=== PATIENT | female | born 1965 | race Caucasian/White ===

== ENCOUNTER 2023-05-23 08:53 | Outpatient (CLI) | payer MEDICARE, SELFPAY ==
--- NOTE | ~2023-05-23 | MM_ITS ---
EXAMINATION: MM screening [facility] BI w seamus HISTORY: Screening mammogram TECHNIQUE: Craniocaudal and mediolateral oblique 3-D tomosynthesis images were obtained and synthetic 2-D images were generated. CAD analysis was submitted and interpreted. COMPARISON: No prior mammogram is available for comparison at this institution. BREAST PARENCHYMAL COMPOSITION: There are scattered areas of fibroglandular density. FINDINGS: There is a circumscribed approximately 5.8 by perhaps 10 mm opacity in the very posterior u pper inner quadrant of the left breast, partially excluded from both images due to its extreme pencil sorter ior position. Diagnostic left mammogram and left breast ultrasound examination are recommended. No suspicious mass, architectural distortion, malignant calcification, skin thickening or retraction of either breast is noted otherwise. There is no evidence of suspicious mass, calcification, or archi tectural distortion to suggest malignancy in either breast. There has been no suspicious interval ly nge. IMPRESSION: 1. Very posterior roughly 1 cm circumscribed mass in the upper inner quadrant of the left breast 2. Diagnostic left mammogram and left breast ultrasound examination are recommended.. Comparison with prior mammograms is recommended as well. BI-RADS Category 0: Incomplete: Needs additional imaging evaluation. Reviewed, dictated and finalized at location A. ROUNDING MACHINE OPERATOR IMPRESSION: 1. Very posterior roughly 1 cm circumscribed mass in the upper inner quadrant o f the left breast 2. Diagnostic left mammogram and left breast ultrasound examination are recomme nded.. Comparison with prior mammograms is recommended as well. BI-RADS Category 0: Incomplete: Needs additional imaging evaluation.
== END 2023-05-23 08:54 | disposition home or self-care (01) ==
DX: Z12.31 Encounter for screening mammogram for malignant neoplasm of breast (principal); R92.8 Other abnormal and inconclusive findings on diagnostic imaging of breast
CPT/HCPCS: 77063; 77067

== ENCOUNTER 2023-06-08 08:45 | Outpatient (CLI) | payer MEDICARE, SELFPAY ==
--- NOTE | ~2023-06-08 | MMUS_ITS ---
EXAMINATION: MM diagnostic [facility] LT w seamus, US breast LT limited HISTORY: Left breast mass on screening mammogram TECHNIQUE: Additional 3-D tomosynthesis images of the left breast were performed and synthetic 2-D im ages were generated. CAD analysis was submitted and interpreted. High resolution limited left breast ultrasound was performed. COMPARISON: 05/23/2023 FINDINGS: MAMMOGRAPHIC FINDINGS: There is a partially imaged low-density, circumscribed mass in the far posterior third of the inner r ight breast at the 10:00 location, 14 cm from the nipple. No suspicious architectural distortion or c alcification are identified. ULTRASOUND: There is an 8 mm x 5 mm cyst at the 10:00 location, 9 cm from the nipple in the left breast correspon ding to the mammographic finding in question. A 4 mm round cyst is also noted at the 12:00 location, 6 cm from the nipple. IMPRESSION: 1. No mammographic or sonographic evidence of malignancy. 2. Recommend routine screening mammography in one year. BI-RADS Category 2: Benign finding(s). Reviewed, dictated and finalized at location A. DE SALES ACCOUNT REPRESENTATIVE IMPRESSION: 1. No mammographic or sonographic evidence of malignancy. 2. Recommend routine screening mammography in one year. BI-RADS Category 2: Benign finding(s).
== END 2023-06-08 08:46 | disposition home or self-care (01) ==
DX: R92.8 Other abnormal and inconclusive findings on diagnostic imaging of breast (principal)
CPT/HCPCS: 76642; 77061; 77065; G0279

== ENCOUNTER 2025-05-17 13:20 | Emergency (ER) | payer MEDICARE, SELFPAY ==
--- NOTE | ~2025-05-17 | CT_ITS ---
EXAMINATION: CT cervical spine wo con COMPARISON: None HISTORY: Fall, anterior Rt. side head injury/ headache/ contusion TECHNIQUE: Axial images were obtained through the spine without IV contrast. Coronal, sagittal reconstruction images were obtained from the axial views. CT scan performed using dose optimization techniques including the following automated exposure control; adjustment of mA and/or kV; use of iterative reconstruction technique. Automatic exposure control was used to reduce radiation dose. Permanent radiation dose record is archived to PACS. FINDINGS: Grade 1 anterolisthesis of C2 on C3 and C3 on C4 and C4 on C5, no fracture identified. Minimal loss of disc height at C5-6 and C6-7 with mild canal stenosis. Soft tissues unremarkable. Impression: No acute abnormality. Reviewed, dictated and finalized at location P. LE R12 DEVELOPER Impression: No acute abnormality.
--- NOTE | ~2025-05-17 | XR_ITS ---
EXAMINATION: XR ankle RT min 3V, 05/17/2025 14:00 TUBE LASER OPERATOR HISTORY: Fall, Rt. foot/ankle pain COMPARISON: No comparisons available. Findings: No acute fracture or malalignment. No significant degenerative changes. Soft tissues unremarkable. Impression: No acute fracture or malalignment. Reviewed, dictated and finalized at location P. LASER OPERATOR Impression: No acute fracture or malalignment.
--- NOTE | ~2025-05-17 | XR_ITS ---
EXAMINATION: XR hip RT 2V w AP pelvis, 05/17/2025 14:00 EXECUTIVE ADVISOR HISTORY: Fall, Rt. hip pain COMPARISON: No comparisons available. Findings: No acute fracture or malalignment. No significant degenerative changes. Soft tissues unremarkable. Impression: No acute fracture or malalignment. Reviewed, dictated and finalized at location P. UTIVE ADVISOR Impression: No acute fracture or malalignment.
--- NOTE | ~2025-05-17 | XR_ITS ---
EXAMINATION: XR foot RT min 3V, 05/17/2025 14:00 THERMAL SPRAY OPERATOR HISTORY: Fall, Rt. foot/ankle pain COMPARISON: No comparisons available. Findings: No acute fracture or malalignment. No significant degenerative changes. Soft tissues unremarkable. Impression: No acute fracture or malalignment. Reviewed, dictated and finalized at location P. MAL SPRAY OPERATOR Impression: No acute fracture or malalignment.
--- NOTE | ~2025-05-17 | CT_ITS ---
EXAMINATION: CT brain wo cara, 05/17/2025 14:00 PHOTORESIST CONTACT PRINTER HISTORY: Fall, anterior Rt. side head injury/ headache/ contusion COMPARISON: No comparisons available. Technique: Axial images obtained of the brain without contrast. One or more of the following dose reduction techniques were used: automated exposure control, adjustment of the mA and/or kV according to patient size, use of iterative reconstruction technique. Findings: No acute infarct or parenchymal hemorrhage. No abnormal mass or mass effect. No midline shift. No extra-axial fluid collections. No hydrocephalus. Mastoid air cells unremarkable. Sinuses and orbits unremarkable. No acute fracture. No significant facial or scalp soft tissue swelling evident. No radiopaque foreign body is seen. Impression: 1.No acute intracranial abnormality. Reviewed, dictated and finalized at location P. ORESIST CONTACT PRINTER Impression: 1.No acute intracranial abnormality.
--- NOTE | ~2025-05-17 | XR_ITS ---
EXAMINATION: XR hand LT min 3V, 05/17/2025 14:00 TIMBER MANAGEMENT PROFESSOR HISTORY: Fall, Lt. hand pain COMPARISON: No comparisons available. Findings: No acute fracture or malalignment. No significant degenerative changes. Soft tissues unremarkable. Impression: No acute fracture or malalignment. Reviewed, dictated and finalized at location P. ER MANAGEMENT PROFESSOR Impression: No acute fracture or malalignment.
[2025-05-17 13:22] VITALS: BP 129/85; PULSE 70; RESP 20; TEMP 36.2; O2SAT 96
--- NOTE | 2025-05-17 13:27 | ED.HEATRA ---
HPI - Head Injury General Chief complaint: Fall Stated complaint: fall Time Seen by Provider: 05/17/25 13:26 Source: patient and family Mode of arrival: ambulatory Limitations: no limitations History of Present Illness HPI Narrative: Patient is a 59-year-old female with a stepped down 1 step and lost her footing and hit her head frontal area onto a glass window and then the concrete. She also sustained injuries to her right hip and her right ankle and her right foot. She had loss of consciousness for a few seconds and woke up on the floor. MD Complaint: head injury, head pain and fall Onset (ago): hour(s) (One) Mechanism of Injury: fall Place: home Loss of Consciousness: yes, second(s) and unwitnessed Location of injury: frontal Severity: moderate Severity scale (1-10): 4 Quality: sharp Radiation: none Other Injuries: lower extremity (Right hip and right ankle and right foot) Context: other (Patient lost her footing due to her right ankle and fell to hit her forehead and injured her right hip and right ankle and right foot; associated syncope) Associated symptoms: syncope Related Data Allergies Allergy/AdvReac Type Severity Reaction Status Date / Time cephalexin Allergy Intermediate Hives / Verified 03/15/18 12:46 Red Face mushroom Allergy Unknown HIVES Verified 03/15/18 12:46 Sulfa (Sulfonamide Allergy Unknown HIVES, Verified 03/15/18 12:46 Antibiotics) THROAT SWELLING Honey Bee Allergy Unknown LOSS OF Uncoded 03/15/18 12:46 CONSCIOUSNESS Review of Systems Review of Systems: All systems reviewed & are unremarkable except as noted in HPI and below Constitutional: Constitutional: Reports no additional constitutional complaints Eyes: Eyes: Reports no additional eye complaints ENT: Reports system reviewed and no additional complaints, except as documented Cardiovascular: Cardiovascular: Reports no additional cardiovascular complaints Respiratory: Respiratory: Reports no additional respiratory complaints Gastrointestinal: Gastrointestinal: Reports no additional gastrointestinal complaints Genitourinary: Genitourinary: Reports no additional female genitourinary complaints Musculoskeletal: Musculoskeletal: Reports no additional musculoskeletal complaints Integumentary/Breasts: Skin/Breast: Reports system reviewed and no additional complaints, except as docu Neurologic: Reports system reviewed and no additional complaints, except as documented Psychiatric: Psychiatric: Reports no additional psychiatric complaints Endocrine: Endocrine: Reports no additional endocrine complaints Hematologic/Lymphatic: Hematologic/Lymphatic: Reports no additional hematologic/lymphatic complaints Allergic/Immunologic: Allergic/Immunologic: Reports no additional allergic/immunologic complaints Exam Const: General: healthy appearing Nutritional Appearance: well nourished Orientation/consciousness: patient oriented x3 HENMT: Head: normal to inspection Ears: external ears normal Face/Nose/Sinus: Normal external nose present Eyes: Conjunctivae: conjunctivae normal Pupils: Equal, round and reactive pupils present EOM: EOMs intact bilaterally Neck: Neck: normal visual inspection Chest: Chest palpation & inspection: normal inspection of the chest Resp: Effort & Inspection: normal respiratory effort and not labored Auscultation: clear to auscultation bilaterally and no crackles Cardio: Rate: regular rate Rhythm: regular rhythm Heart sounds: no murmurs GI: Inspection: non-distended GI Palp: Yes Soft to palpation and No Tenderness to palpation present (GI) Auscultation: normal bowel sounds : General: Yes bladder normal to palpation Back/Spine/Pelvis: Back: no CVA tenderness Skin: General skin exam: normal color Rashes: no rashes Wounds: wound noted Other: Right frontal forehead has a medium sized hematoma the size of a golf ball with topical abrasion; tetanus shot up-to-date in the past 10 years Neuro: General: patient oriented x3, moves all extremities and no meningeal signs Cranial nerves: Yes CN's II-XII intact bilaterally and Yes Nystagmus not present Speech: normal speech Gait exam (Neuro): gait abnormal (Abnormal gait due to right ankle injury) Other: Fast exam negative, NIH is 0, GCS is 15 Extrem: General: normal to inspection, no clubbing, cyanosis or edema and no pedal edema Other: Tender right hip posteriorly, tender right ankle and tender right foot; no major skin changes or swelling seen in all of these areas Psych: Mental Status: mental status grossly normal Affect: normal affect Attitude: cooperative Course Vital Signs Vital signs: Vital Signs Temperature 36.2 C L 05/17/25 13:22 Pulse Rate 70 05/17/25 13:22 Respiratory Rate 20 05/17/25 13:22 Blood Pressure 129/85 05/17/25 13:22 Pulse Oximetry 96 05/17/25 13:22 Oxygen Delivery Room Air 05/17/25 13:22 Temperature 36.2 C L 05/17/25 13:22 Pulse Rate 70 05/17/25 13:22 Respiratory Rate 20 05/17/25 13:22 Blood Pressure 129/85 05/17/25 13:22 Pulse Oximetry 96 05/17/25 13:22 Oxygen Delivery Room Air 05/17/25 13:22 MDM - Head Injury MDM Narrative Medical decision making narrative: Patient is a 59-year-old female with a head injury after a fall with associated syncope and also right hip and right ankle and right foot injuries. We will get x-rays and CT scan head and neck. Imaging Data Attestation: I personally reviewed and interpreted this imaging study as follows: Radiologist's impression: X-ray right hip and pelvis are negative for acute process X-ray left hand is negative for acute process X-ray right ankle is negative for acute process Scan of the head and neck were both negative for acute process X-ray right foot is negative for acute process Discharge Plan Discharge Clinical Impression: Syncope, Fall, Closed head injury, Multiple contusions Patient Disposition: Home Condition: Stable Instructions: Syncope (ED), Head Injury (ED) Additional Instructions: Please follow-up with primary doctor in the next week. You will need to be woken up around 2 or 3:00 a.m. tonight to check for normal mental status. Please come back to the emergency room with any further or worsening symptoms. Patient Language: Citizen Of [place] Follow-up/Referrals: Ty,Katt Chiu MD [Primary Care Provider, Unknown] Time of Disposition: 14:31
--- NOTE | 2025-05-17 13:58 | PC.NURSE ---
pt complaint of left hand pain while in xray department. orpder placed per dr shepherd
--- OUTSIDE RECORDS SUMMARY | 2025-05-17 14:33 | XMS_ITS | Encounter Summary ---
Author Organization [facility] Address [facility] [place] [address] Care Team Providers Care Goat Herder Name Role Phone Kurt Lott MD Primary Care Provider Hermann Renae MD Unavailable [phone] Magan Felder MD Primary Care Provider Joao Turner MD Primary Care Provider [phone] Encounter Details Date Type Department Care Team (Late st Contact Info) Description 10/02/2018 Abstract [facility] [address] [place] [address] Abstract, Doc [facility] Social History Tobacco Use Types Packs/Day Years Used Date Smoking Tobacco: Former Cigarettes Comments Unknown Sex and Gender Information Value Date Recorded Sex Assigned at Female 02/13/2019 4:23 PM CDT Legal Sex Female 8:42 PM CDT Gender Identity Female 02/13/2019 4:23 PM CDT Sexual Orientation Not on file documented as of this encounter Plan of Treatment Not on file documented as of this encounter Visit Diagnoses Not on filedocumented in this encounter Additional Health Concerns Infection Onset Date Last Indicated Resolved Time COVID-19 Rule Out 02/22/2021 02/22/2021 02/22/2021 2:01 AM CDT documented as of this encounter Care Teams Goat Herder Relationship Specialty Start Date End Date Kurt Lott MD PCP - General FAMILY PRACTICE 10/02/18 01/05/19 Magan Felder MD [address] [place] [phone] PCP - General FAMILY PRACTICE 01/06/19 04/03/20 Joao Turner MD [address] [place] [address] PCP - General FAMILY PRACTICE 04/04/20 Hermann Renae MD [address] [place] [address] [place] [employer] Police Officer CARDIOVASCULAR DISEASE 10/02/18 documented as of this encounter
--- OUTSIDE RECORDS SUMMARY | 2025-05-17 14:33 | XMS_ITS | Clinical Summary ---
Author Organization [facility] Building B Address [address] [place] [address] Care Team Providers Care Funeral Pre Need Consultant Name Role Phone Joao Truner MD Primary Care Provider [phone] Allergies Active Allergy Reactions Criticality Noted Date Comments Azithromycin Rash Medium 10/02/2018 Cephalexin Hives,Unknown Medium 04/12/2018 Sulfa (Sulfonamide Antibiotics) Anaphylaxis High 06/[address] (CYMBALTA) 60 mg capsule Take 60 mg by mouth 2 (two) times a day Active traMADol (ULTRAM) 50 mg tablet 0 9 Active prednisoLONE acetate (PRED FORTE) 1 % ophthalmic suspension Administer 1 drop into both eyes as directed (per patient uses every 3 days) Active atorvastatin (LIPITOR) 10 mg tablet Take 10 mg by mouth daily 2 Active cyclobenzaprine (FLEXERIL) 10 mg tablet Take 10 mg by mouth 3 (three) times a day as needed Active gabapentin (NEURONTIN) 600 mg tablet Take 600 mg by mouth 4 (four) times a day 1200 / 600 / 600 / 1200 2 Active lisinopril-hydr oCHLOROthiazide (ZESTORETIC) 10-12.5 mg per tablet Take 1 tablet by mouth daily 2 Active metoprolol (LOPRESSOR) 100 mg tablet Take 100 mg by mouth 2 (two) times a day 2 Active rOPINIRole (REQUIP) 0.5 mg tablet Take 0.5 mg by mouth nightly 2 Active Active Problems Problem Noted Date Diagnosed Date Chronic migraine with aura 09/21/2021 Surgical History Surgery Date Site/Laterality Comments TUBAL LIGATION HYSTERECTOMY BREAST LUMPECTOMY Medical History Medical History Date Comments Hypertension Fuchs' corneal dystrophy History of corneal transplant OU Splenic lesion Meningioma, cerebral (HCC) Depression Glaucoma Age-related macular degeneration Unexplained vision loss, OU Poss ibly nonorganic Left carpal tunnel syndrome Headaches Family History Medical History Relation Name Comments Stroke Father Parkinsonism Maternal Grandmother Relation Name Status Comments Father Maternal Grandmother Social History Tobacco Use Types Packs/Day Years Used Date Smoking Tobacco: Former Cigarettes Smokeless Tobacco: Never Alcohol Use Standard Drinks/Week Comments Yes 0 (1 standard drink = 0.6 oz pur e alcohol) AUDIT-C Answer Date Recorded Frequency of Alcohol Consumption Monthly or less 11/26/2018 Average Number of Drinks Not on file 019 Frequency of Binge Drinking Not on file 10/31 Personal Safety Answer Date Recorded Getting School Help Needed Not on file 07/06 Comments Unknown Sex and Gender Information Value Date Recorded Sex Assigned at Not on file Legal Sex Female 6:08 AM BINDER CASER Gender Identity Not on file Sexual Orientation Not on file Last Filed Vital Signs Vital Sign Reading Time Taken Comments Blood Pressure 154/84 11/26/2018 11:19 AM CDT Pulse 70 11/26/2018 11:19 AM CDT Temperature - - Respiratory Rate 16 11/26/2018 11:19 AM CDT Oxygen Saturation - - Inhaled Oxygen Concentration - - Weight 78 kg (172 lb) 11/26/2018 11:19 AM CDT Height 162.6 cm (5' 4) 11/26/2018 11:19 AM CDT Body Mass Index 29.52 11/26/2018 11:19 AM CDT Plan of Treatment Not on file Insurance [place] [facility] Care Teams Funeral Pre Need Consultant Relationship Specialty Start Date End Date Joao Turner MD [address] [place] [address] PCP - General Family Medicine 09/21/21
--- OUTSIDE RECORDS SUMMARY | 2025-05-17 14:34 | XMS_ITS | Encounter Summary ---
Author Organization [facility] Address [facility] [place] [address] Care Team Providers Care Hand Method Lasting Machine Operator Name Role Phone Kurt Lott MD Primary Care Provider Hermann Renae MD Unavailable [phone] Magan Felder MD Primary Care Provider Joao Turner MD Primary Care Provider [phone] Encounter Details Date Type Department Care Team (Late st Contact Info) Description 12/07/2018 Abstract [facility] [address] [place] [address] , Generic Conversion, Social History Tobacco Use Types Packs/Day Years Used Date Smoking Tobacco: Former Cigarettes Smokeless Tobacco: Never Comments Unknown Sex and Gender Information Value [...] documented as of this encounter Care Teams Hand Method Lasting Machine Operator Relationship Specialty Start Date End Date Kurt Lott MD PCP - General FAMILY PRACTICE 10/02/18 01/05/19 Magan Felder MD [address] [place] [phone] PCP - General FAMILY PRACTICE 01/06/19 04/03/20 Joao Turner MD [address] [place] [address] PCP - General FAMILY PRACTICE 04/04/20 Hermann Renae MD [address] [place] [address] [place] Desktop Publishing Specialist CARDIOVASCULAR DISEASE 10/02/18 documented as of this encounter
--- OUTSIDE RECORDS SUMMARY | 2025-05-17 14:34 | XMS_ITS | Encounter Summary ---
Author Organization [facility] Address Count includes the [facility] [place] [address] Care Team Providers Care Pretzel Twisting Machine Operator Name Role Phone Kurt Lott MD Primary Care Provider Hermann Renae MD Unavailable [phone] Magan Felder MD Primary Care Provider Joao Turner MD Primary Care Provider [phone] Encounter Details Date Type Department Care Team (Late st Contact Info) Description 10/15/2018 Abstract [facility] [address] [place] [address] Hermann Renae MD [address] [place] [address] Social History Tobacco Use Types Packs/Day Years [...] on file documented as of this encounter Procedures Procedure Name Priority Date/Time Associated Diagnosis Comments BASIC METABOLIC PANEL Routine 10/04/2018 THYROXINE, FREE (FT4) Routine 10/04/2018 documented in this encounter Results * THYROXINE, FREE (FT4) (10/04/2018) FREE T4 0.93 FREE T3 1.4 TSH 1.25 CORTISOL 12.9 10/04/2018 us Doc [facility] Abstract LABORATORY Final Result * BASIC METABOLIC PANEL (10/04/2018) SODIUM S/P/B 143 POTASSIUM S/P/B 4.2 CO2 26 CHLORIDE S/P/B 105 GLUCOSE 82 mg/dL CALCIUM S/P/B 9.5 BUN 23 CREATININE S/P/B 0.97 0.5 - 1.0 10/04/2018 us Doc [facility] Abstract LABORATORY Final Result documented in this encounter Visit Diagnoses Not on filedocumented in this encounter Additional Health Concerns Infection Onset Date Last Indicated Resolved Time COVID-19 Rule Out 02/22/2021 02/22/2021 02/22/2021 2:01 AM CDT documented as of this encounter Care Teams Pretzel Twisting Machine Operator Relationship Specialty Start Date End Date Kurt Lott MD PCP - General FAMILY PRACTICE 10/02/18 01/05/19 Magan Felder MD [address] [place] [phone] PCP - General FAMILY PRACTICE 01/06/19 04/03/20 Joao Turner MD [address] [place] [address] PCP - General FAMILY PRACTICE 04/04/20 Hermann Renae MD [address] [place] [phone] [place]cer CARDIOVASCULAR DISEASE 10/02/18 documented as of this encounter
[2025-05-17 15:03] VITALS: BP 102/65; PULSE 115; RESP 20; TEMP 35.8; O2SAT 94
== END 2025-05-17 15:06 | disposition home or self-care (01) ==
LOC: CHSED 14:32
PROVIDERS: Emergency Provider Emergency Medicine; PCP Family Medicine
DX: S00.83XA Contusion of other part of head, initial encounter (principal); R55 Syncope and collapse; S79.911A Unspecified injury of right hip, initial encounter; S99.921A Unspecified injury of right foot, initial encounter; S99.911A Unspecified injury of right ankle, initial encounter; W10.9XXA Fall (on) (from) unspecified stairs and steps, initial encounter
CPT/HCPCS: 29515; 70450; 72125; 73130; 73502; 73610; 73630; 99284; L4350

== ENCOUNTER 2025-06-02 10:16 | Emergency (ER) | payer MEDICARE, SELFPAY ==
[2025-06-02] VITALS (13 sets, daily range): BP systolic 111–135; BP diastolic 63–77; PULSE 84; RESP 16; TEMP 36.6; O2SAT 93–100
--- NOTE | ~2025-06-02 | CT_ITS ---
EXAMINATION: CT brain wo cara, 06/02/2025 10:35 BOWLING ALLEY OPERATOR HISTORY: fall COMPARISON: No comparisons available. Technique: Axial images obtained of the brain without contrast. One or more of the following dose reduction techniques were used: automated exposure control, adjustment of the mA and/or kV according to patient size, use of iterative reconstruction technique. Findings: No acute infarct or parenchymal hemorrhage. No abnormal mass or mass effect. No midline shift. No extra-axial fluid collections. No hydrocephalus. Mastoid air cells unremarkable. Sinuses and orbits unremarkable. No acute fracture. No significant facial or scalp soft tissue swelling evident. No radiopaque foreign body is seen. Impression: 1.No acute intracranial abnormality. Reviewed, dictated and finalized at location P. ING ALLEY OPERATOR Impression: 1.No acute intracranial abnormality.
--- NOTE | ~2025-06-02 | XR_ITS ---
EXAMINATION: XR ankle RT min 3V DATE: 06/02/2025 10:53 INDICATION: Right ankle injury TECHNIQUE: Anteroposterior, oblique, mortise, and lateral views of the right ankle were obtained. COMPARISON: None. FINDINGS: Alignment is normal. No fracture. Joint spaces are well maintained. No ankle joint effusion. The soft tissues are unremarkable. IMPRESSION: 1. Negative right ankle radiographs. Reviewed, dictated and finalized at location A. OWN MACHINE OPERATOR
--- NOTE | 2025-06-02 10:31 | PC.NURSE ---
Pt family member states that she is concerned that pt is hearing voices. When RN speaks with the pt the pt denies hearing any voices. Pt denies SI/HI at this time as well.
--- NOTE | 2025-06-02 10:37 | PC.NURSE ---
Pt to CT scanner with radiology transport.
--- NOTE | 2025-06-02 10:51 | ED_ITS ---
HPI - Fall General Chief Complaint: Fall Stated Complaint: fall; ankle pain and confusion Time Seen by Provider: 06/02/25 10:31 Source: patient Mode of arrival: wheelchair Limitations: no limitations History of Present Illness HPI Narrative: 59-year-old with a history of hypertension was brought in by family with a complains of fall which was on the 17 May and S today as well. Denies LOC no complaining of right temporal headache and right ankle pain. She states that she tripped on a toy and fell. MD complaint: fall Onset (ago): day(s) (1) Fall from: standing Fall witnessed: yes, by family Place fall occurred: home Loss of consciousness: none Prolonged down time: no Symptoms prior to fall: none Context: tripped/slipped Location of injury: head Location of injury - extremities: Right: ankle Severity: mild Quality: dull Associated symptoms (after fall): denies Related Data Home Medications ?Medication ?Instructions ?Recorded ?Confirmed ?Last Taken ?Type atorvastatin 20 mg tablet mg 06/02/25 Unknown History duloxetine 60 mg capsule,delayed mg PO 06/02/25 Unkno wn History release gabapentin 600 mg tablet mg 06/02/25 Unknown History lisinopril 10 tablet 06/02/25 Unknown His tory mg-hydrochlorothiazide 12.5 mg tablet meloxicam 15 mg tablet mg 06/02/25 Unknown History metoprolol tartrate 100 mg tablet mg 06/02/25 Unknown History ropinirole 0.5 mg tablet mg 06/02/25 Unknown History Allergies Allergy/AdvReac Type Severity Reaction Status Date / Time cephalexin Allergy Intermediate Hives / Verified 06/02/25 10:27 Red Face mushroom Allergy Unknown HIVES Verified 06/02/25 10:27 Sulfa (Sulfonamide Allergy Unknown HIVES, Verified 06/02/25 10:27 Antibiotics) THROAT SWELLING venom-honey bee Allergy Unknown Unknown Verified 06/02/25 10:27 Review of Systems Review of Systems: All systems reviewed & are unremarkable except as noted in HPI and below Constitutional: Constitutional: Reports no additional constitutional complaints Eyes: Eyes: Reports no additional eye complaints ENT: Reports system reviewed and no additional complaints, except as documented Cardiovascular: Cardiovascular: Reports no additional cardiovascular complaints Respiratory: Respiratory: Reports no additional respiratory complaints Gastrointestinal: Gastrointestinal: Reports no additional gastrointestinal complaints Musculoskeletal: Musculoskeletal: Reports as per HPI Integumentary/Breasts: Skin/Breast: Reports system reviewed and no additional complaints, except as docu Exam Narrative: GENERAL: Well-appearing, well-nourished, and in no acute distress. HEAD: Normocephalic, atraumatic. old bruise noted on the right frontal area EYES: PERRLA and EOMI. ENT: Nares clear, no rhinorrhea or epistaxis. Mucous membranes moist. NECK: Supple. CHEST: Clear to auscultation. No respiratory distress. HEART: Regular rate and rhythm. No murmur heard. Normal peripheral pulses. ABDOMEN: Soft, nontender, nondistended, normal active bowel sounds. EXTREMITIES: Normal range of motion. No edema. SKIN: Warm, dry, no rash. NEURO: No focal deficits. Alert and oriented x3. PSYCH: Normal mood and affect. Course Course Emergency Course: informed patient and her niece about the CT and x-ray findings. Advised fall precautions take pain medication. Vital Signs Vital signs: Vital Signs Temperature 36.6 C 06/02/25 10:16 Pulse Rate 84 06/02/25 10:16 Respiratory Rate 16 06/02/25 10:16 Blood Pressure 114/63 06/02/25 10:16 Pulse Oximetry 97 06/02/25 10:16 Oxygen Delivery Room Air 06/02/25 10:16 Temperature 36.6 C 06/02/25 10:16 Pulse Rate 84 06/02/25 10:16 Respiratory Rate 16 06/02/25 10:16 Blood Pressure 135/77 06/02/25 11:16 Pulse Oximetry 96 06/02/25 11:16 Oxygen Delivery Room Air 06/02/25 10:16 [facility] Narrative Medical decision making narrative: 59-year-old with a history of hypertension here with a fall has right ankle pain will obtain x-ray complaining of right-sided headache will do a CT of the head a. Differential Diagnosis Differential Diagnosis: ankle fracture, ankle sprain, head injury Imaging Data Radiologist's impression: ITS Impressions Head CT 06/02/25 10:53 Impression: 1.No acute intracranial abnormality. Ankle X-Ray 06/02/25 11:16 IMPRESSION: 1. Negative right ankle radiographs. Discharge Plan Discharge Clinical Impression: Right ankle sprain Qualifiers: Encounter type: initial encounter Involved ligament of ankle: unspecified ligament Qualified Code(s): S93.401A - Sprain of unspecified ligament of right ankle, initial encounter Minor head injury Qualifiers: Encounter type: initial encounter Qualified Code(s): S09.90XA - Unspecified injury of head, initial encounter Patient Disposition: Home Condition: Stable Instructions: Ankle Sprain (DC), Head Injury (ED) Patient Language: Romanian Prescriptions: No Action gabapentin 600 mg tablet atorvastatin 20 mg tablet metoprolol tartrate 100 mg tablet meloxicam 15 mg tablet ropinirole 0.5 mg tablet lisinopril-hydrochlorothiazide 10-12.5 mg tablet duloxetine 60 mg capsule,delayed release(DR/EC) PO Follow-up/Referrals: Ty,Katt Chiu MD [Primary Care Provider, Unknown] Time of Disposition: 11:02
--- NOTE | 2025-06-02 10:56 | PC.NURSE ---
Pt back in room from CT scanner.
--- OUTSIDE RECORDS SUMMARY | 2025-06-02 11:14 | XMS_ITS | Clinical Summary ---
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
--- OUTSIDE RECORDS SUMMARY | 2025-06-02 11:14 | XMS_ITS | Continuity of Care Document ---
Author Organization [facility] ([place]) Address [address] [place] [address] Care Team Providers Care Sap Data Architect Name Role Phone KATT MAJANO Primary Care Provider Assessment Encounter Date Assessment Date Assessment LastModified by Organization Details LastModified Time 05/27/2025 05/27/2025 1. Healthy lifes tyle was encouraged, including low glycemic/low processed food diet and regular exercise. Medications can be refilled as needed. 2. Hypertension is stable under the current medication regimen of lisinopril 20 mg, hydrochlorothiazide 12.5 mg, and metoprolol 100 mg No medication changes at this time. Recommend continuing to monitor home blood pressure readings. Request that they report changes in numbers or problems with medication. Discussed continued lifestyle modifications for weight and blood pressure. 3. We previously reviewed her lab work that was done with [facility]. He cholesterol is controlled at this time. We increased her atorvastatin to 20 mg daily. 4. Fibromyalgia is currently controlled with duloxetine, cyclobenzaprine, gabapentin, meloxicam, and tramadol. 5. 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 6. Currently uses ropinirole for her restless legs and this is controlled. 7. The patient has generalized arthritis pain. She uses cyclobenzaprine, duloxetine, gabapentin, meloxicam, and tramadol. 8. Ankle/foot/thumb pain post fall- continue RICE/ankle exercises but will recheck xrays to ensure no fractures. patient also currently in aircast. The patient will follow up in 6 months or of course sooner as needed. [email or web address] Not available 05/27/2025 16:32:33 Plan of Treatment Reminders Order Date Submit Date Provider Last Modified By Organization Details Last Modified Time Details Appointments Establish ed Patient 20.EST 2025 03:40P M Dr. Katt Majano Not available Not available Not available Lab None recorded. Referral None recorded. Procedures None recorded. Surgeries None recorded. Imaging XR, foot, 3 or more view 2024 [facility], [address], [place], [address], 05/27/2025 18:13:59 XR, ankle, 3 or more view 2024 [facility], [address], [place], [address], 05/27/2025 18:14:09 XR, finger(s) , 2 or more view - left thumb 2024 [facility], [facility] [address], [place], [address], 05/29/2025 00:37:43 Medication Orders atorvasta tin 20 mg tablet 2024 [facility], [address] [place] [address], [address], [place], [address], 05/27/2025 16:17:08 Patient TargetsNo targets recorded. Patient InstructionsNo instructions recorded. Reason for Referral None Reported. Results Created Date Observation Date Name Description Value Unit Range Abnormal Flag Note LastModifiedBy Organization Detail LastModifiedTime 05/18/2005/17/2025 imagi ng/di agnos tic resul t No observ ation record ed. [email or web address] [facility] [address] [place], [address], 05/18/2025 09:40:14 05/27/20 25 05/27/2025 XR, foot, 3 or more view No observ ation record ed. [facility] (Radiology) [address] [place], [address], 06/01/2025 14:20:56 05/27/20 25 05/27/2025 XR, ankle , 3 or more view No observ ation record ed. [facility] (Radiology) [address], [place], [address], 06/01/2025 14:20:56 05/27/20 25 05/27/2025 XR, finge r(s), 2 or more view No observ ation record ed. [facility] [address], [place], [address], 06/01/2025 14:20:57 Result Notes Documentation Provider Name and Address Organization Details Recorded Time Xr, Foot, 3 Or More View : This document (1 of 1) was received from [employer] on 05/27/2025 through Direct Message along with the following message body content: You have received a 3 page fax at 05/27/2025 10:57:06 PM. * The Caller-ID for this fax is [facility]. If you have any questions regarding this message or your service contact [employer] Support: [place] Email: [email or web address] Phone: or Email: [email or web address] Phones: [phone] Thank you for using the Pic[employer] service! Katt Majano MD [facility], [address], [facility] 06/01/2025 11:38:34 Xr, Ankle, 3 Or More View : This document (1 of 1) was received from [employer] on 05/27/2025 through Direct Message along with the following message body content: You have received a 3 page fax at 05/27/2025 10:57:05 PM. * The Caller-ID for this fax is [facility]. If you have any questions regarding this message or your service contact Corporate Support: [place] Email: [email or web address] Phone: or Email: [email or web address] Phones: [phone] Thank you for using the Pic[employer] service! Katt Majano MD [address] [place] [address], [phone], [facility] 06/01/2025 11:38:34 Xr, Finger(s), 2 Or More View : This document (1 of 1) was received from [email or web address] on 05/27/2025 through Direct Message along with the following message body content: You have received a 3 page fax at 05/27/2025 10:57:54 PM. * The Caller-ID for this fax is [facility]. If you have any questions regarding this message or your service contact Corporate Support: [place] Email: [email or web address] Phone: or Email: [email or web address] Phones: [phone] Thank you for using the Piccsy service! Katt Majano MD [address] [place] [address], [phone], [facility] 06/01/2025 11:38:34 Problems Name Problem SNOMED Code Status Onset Date Resolution Date Notes Provider Name and Address Organization Details Recorded Time Benign meningioma 048742616 Active Not Available [facility] 16:27:48 Essential hypertensi on 57124784 Active 2024 Katt Majano MD [address] [place] [address], [phone] , [facility] 16:23:55 Hyperlipid emia 01112280 Active 2024 Katt Majano MD [address] [place] [address], [phone] , [facility] 16:24:05 Fibromyalg ia 955413748 Active 2024 Katt Majano MD [address] [place] [address], [phone] , [facility] 16:24:14 Generalize d arthritis 919861835 Active 2024 Katt Majano MD [address] [place] [address], [phone] [facility] 16:25:07 Restless legs syndrome 59648656 Active 2024 Katt Majano MD [facility] [place] [address] [facility] 16:25:13 Neuromyeli tis optica 75644932 Active 2024 Katt Majano MD [facility] [place] [address], [address] [facility] 16:25:42 Pain in right foot 2058287235780 07 Active 2024 Katt Majano MD [address] [place] [address], [phone] [facility] 5 16:15:49 Pain in left thumb 4023342839100 100 Active 2024 Katt Majano MD [address] [place] [phone] [facility] 16:17:51 Notes:Some problems listed i n Documents: #[id number], #[id number] could not be added to this patient's chart. Please review these documents and add these problems to the patient's chart manually as needed. Problem Notes None recorded. Procedures Surgical History Date Name Laterality Status Provider Name and Address Organization Details Recorded Time Total hysterectomy completed Not Available Health Note 11/13/2024 17:04:55 Imaging Results None recorded. Procedure Notes None recorded. Medical Equipment None Reported. Allergies Allergen ID Allergen Name Allergen Category Reaction Reaction Severity Criticality Documentation Date Start Date Code Code System Note Provider Name and Address Organization Details Recorded Time 9915258 honey bee venom medicatio n anaphylax is Not available Not available 11/13/2024 91204 7 RxNorm Not Available Health Note 17:04:54 8652970 cultivate d mushroom extract food,medi cation anaphylax is Not available Not available 05/27/2025 40502 17 RxNorm Noemy Martinez [facility] 16:01:12 861232 Biaxin medicatio n anaphylax is Not available Not available 07/30/20232022 57296 9 RxNorm React ion: Synco pe; Anaph ylaxi s; Comme nt: Other Chaitanya kennedy ns: Healt h Note, ADPVe ndor 2022 2:23P M Honey bees; ; Not Available [facility] 22:37:30 528983 Substance with sulfonami de structure and antibacte rial mechanism of action (substanc e) medicatio n anaphylax is Not available Not available 07/30/20232018 87096 8003 SNOMED React ion: Throa t Swell ing; Tongu e Swell ing; Not Available [facility] 22:37:30 198210 Keflex medicatio n anaphylax is Not available Not available 07/30/20232018 22064 7 RxNorm React ion: Tongu e Swell ing; Throa t Swell ing; Not Available [facility] 4 22:37:30 Medications Name Sig Start Date Stop Date Status Note LastModified by Organization Details LastModified Time gabapentin 600 mg tablet TAKE 1 TABLET 4 TIMES A DAY BY ORAL ROUTE. 2024 active Not Available Not Available Not Avai lable atorvastati n 20 mg tablet Take 1 tablet every day by oral route for 90 days. 2024 active Not Available Not Available Not Avai lable atorvastati n 10 mg tablet Take 1 tablet by mouth daily 11/20 completed Not Available Not Available Not Available metoprolol tartrate 100 mg tablet Take 1 tablet twice a day by oral route. 2024 active Not Available Not Available Not Avai lable meloxicam 15 mg tablet TAKE 1 TABLET (15 MG) BY ORAL ROUTE ONCE DAILY 2024 active Not Available Not Available Not Avai lable tramadol 50 mg tablet Take 1 tablet twice a day by oral route for 30 days. 2024 active Not Available Not Available Not Avai lable ropinirole 0.5 mg tablet Take 1 tablet every day by oral route at bedtime for 30 days. 2024 active Not Available Not Available Not Avai lable lisinopril 10 mg-hydrochl orothiazide 12.5 mg tablet Take 1 tablet every day by oral route for 90 days. 2024 active Not Available Not Available Not Avai lable cyclobenzap rine 5 mg tablet TAKE ONE TABLET BY MOUTH THREE TIMES DAILY NEEDED 2024 active Not Available Not Available Not Avai lable duloxetine 60 mg capsule,del ayed release TAKE 1 CAPSULE BY MOUTH TWICE A DAY 2024 active Not Available Not Available Not Avai lable EpiPen 2-Michael 0.3 mg/0.3 mL injection, auto-inject or Administe r 1 pen intramusc ularly one time (dispense 2-michael for each location, e.g. home/[facility]/other) may repeat one time 2024 active Not Available Not Available Not Avai lable Vitals Date Recorded Body height Body mass index (BMI) Body weight Respiratory rate Oxygen saturation Heart rate Systolic And Diastolic Provider Name and Address Organization Details Last Updated DateTime 5 161.29 cm 31.1 kg/m2 77386.6 g 20 /min 98 % 69 /min 154/84 mm[Hg] [facility] 5 16:04:46 Social History Question Answer Notes LastModified by Organizat ion Details LastModified Time Tobacco Smoking Status Former Smoker Not Available Health Note 11/13/2024 17:04:55 Do You Have An Advance Directive? No [email or web address] Information not available 11/13/2024 What Is Your Level Of Caffeine Consumption? None [email or web address] Information not available 11/13/2024 Which Illicit Or Recreational Drugs Have You Used? Marijuana [email or web address] Information not available 11/13/2024 How Many Times Per Week Do You Exercise? 1-2 Times Per Week [email or web address] Information not available 11/13/2024 When Did You Quit Smoking? 16+yearssincel jules [email or web address] Information not available 11/13/2024 What Was The Date Of Your Most Recent Tobacco Screening? 05/27/2025 [email or web address] Information not available 05/27/2025 What Is Your Relationship Status? [email or web address] Information not available 11/13/2024 Sex: Unknown Functional Status Question Answer Note LastModified by Organizat ion Details LastModified Time How many times per week do you consume alcohol? Less than 1 time per week [email or web address] Information not available 11/13/2024 Do you use any illicit or recreational drugs? Yes [email or web address] Information not available 11/13/2024 Do you or have you ever used any other forms of tobacco or nicotine? No [email or web address] Information not available 11/13/2024 What is your level of alcohol consumption? Occasional [email or web address] Information not available 11/13/2024 Are you currently employed? No [email or web address] Information not available 11/13/2024 What is your occupation? 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 Occasional [email or web address] Information not available 11/13/2024 Mental Status None recorded. Family History Relationship Description Onset Age of this Age Resolved Age Notes LastModified by Organization Details LastModified Time Mother Alzheimer's disease [email or web address] Not available 2024 17:04:53 Mother Arthritis [email or web address] Not available 11/13/2024 17:04:53 Mother Family history of malignant neoplasm [email or web address] Not available 2024 17:04:54 Mother Chronic obstructive pulmonary disease [email or web address] Not available 2024 17:04:54 Mother Heart disease [email or web address] Not available 2024 17:04:54 Mother Hypertensive disorder [email or web address] Not available 2024 17:04:54 Mother Hypercholest erolemia [email or web address] Not available 2024 17:04:54 Mother Osteoporosis [email or web address] Not availa ble 11/13/2024 17:04:54 Mother Cerebrovascu lar accident [email or web address] Not available 17:04:54 Father Arthritis [email or web address] Not available 11/13/2024 17:04:54 Father Blood coagulation disorder [email or web address] Not available 2024 17:04:54 Father Chronic obstructive pulmonary disease [email or web address] Not available 2024 17:04:54 Father Diabetes mellitus [email or web address] Not available 2024 17:04:54 Father Heart disease [email or web address] Not available 2024 17:04:54 Father Hypertensive disorder [email or web address] Not available 2024 17:04:54 Father Hypercholest erolemia [email or web address] Not available 2024 17:04:54 Medical History Condition Response Diabetes Y Anxiety Disorder Y Bleeding Disorder N Attention-deficit Hyperactivity Disorder N High Blood Pressure Y Arthritis Y Hyperlipidemia Y Cancer N Stroke N Thyroid Problems N Asthma N Depression Y COPD N Anemia Y Seizures N Heart Disease N Fibromyalgia Y Osteoporosis N Kidney Disease N Gynecological History Statement/Question Response Abnormal Pap Y Age at Menarche 16 Obstetrics History GPAL:G 0 P 0 0 0 0 Immunizations Vaccine Type Date Status Note Provider Nam e and Address Organization Details Recorded Time Influenza, MDCK, trivalent, PF 5 completed [facility] 05/27/2025 16:37:31 Influenza, split virus, quadrivalent, preservative 9 completed Not Available [facility] 06/01/2025 10:40:55 Influenza, split virus, quadrivalent, preservative 9 completed Not Available [facility] 06/01/2025 10:40:55 Tdap 3 completed Not Available [facility] 06/01/2025 10:40:55 Past Encounters Encounter ID Performer Location Encounter Start Date Encounter Closed Date Diagnosis/Indication Diagnosis SNOMED-CT Code Diagnosis ICD10 Code Diagnosis IMO Codes Diagnosis Note [id number] Katt Majano MD [facility] ([place]) [address] [place] [phone] 05/27/2025 15:45:37 05/27/2025 16:32:02 Adult health examination 535394361 Z00.00 363396 Benign meningioma 337631 006 D32.9 stable, calcified benign meningioma on head CT 2022. no sx. Hyperlipidemia 56447370 E78.5 30161777 Essential hypertension 17105573 I10 30740 Fibromyalgia 877932874 M 79.7 98451 Neuromyelitis optica 250 28021 G36.0 78395 follows with neuroptho Restless l egs syndrome 90777315 G25.81 628833 Generalized arthritis 20 4841865 M19.90 22941961 Body mass index 30+ - obesity 033643980 Z68.33 888772 discussed diet, exercise, weight management Pain in right foot 77115 96315 59753 M79.671 940118 Pain in left thumb 64119 72088 382181 M79.645 02455190 Vaccination needed 28026 52699 38636 Z23 310156 Health Concerns Section Related Observation LastModified by Organization Detai ls LastModified Time None Recorded Concern Status LastModified by Organization Details LastModified Time None Recorded Payers Encounter Date Sequence Insurance Name Policy Number Policy Echavarria Covered Member ID Echavarria Member ID Guarantor Name 05/27/2025 1 [facility] (MEDICARE REPLACEMENT/A DVANTAGE - HMO) [id number] Adeline Taylor [id number] Adeline Taylor Notes Date Note Type Note Provider Name and Address Organization Details Recorded Time 05/27/2025 text/html The patient is here today for a routine six month visit. She had a fall around 05/17/25 and went to the emergency room in [place]. She injured her right ankle and foot, but was told she didn't have any fractures. She continues to have pain and swelling of her foot and ankle. She is also having pain at the base of her left thumb. She said it was bruised, but it has gone away. She has also been having pain in her right hip. She did have x rays of her hip when she was in the ER and they came back okay. -mammogram: 12/22/2024-PAP: s/p hysterectomy-col onoscopy: 11/20/2024-influ [place] vaccine: wants today Katt Majano MD [address] [facility], [place], [address], [facility] 05/27/2025 17:01:28 OBGyn Episode No OBEpisode recorded.
--- OUTSIDE RECORDS SUMMARY | 2025-06-02 11:14 | XMS_ITS | Data Portability ---
Author Organization [facility] [address] [facility] ([place]) Address [address] [place] [address] 4th [place] [address] Care Team Providers Care Substation Operator Name Role Phone KATT MAJANO Primary Care Provider Assessment Encounter Date Assessment Date Assessment LastModified by Organization Details LastModified Time 11/20/2024 11/20/2024 1. Healthy lifes tyle was encouraged, including [...] for weight and blood pressure. 3. We reviewed her lab work that was done with [facility]. He cholesterol is controlled at this time. We will increase her atorvastatin to 20 mg daily. 4. Fibromyalgia is currently controlled with duloxetine, cyclobenzaprine, gabapentin, meloxicam, and tramadol. 5. 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 6. Currently uses ropinirole for her restless legs and this is controlled. 7. The patient has generalized arthritis pain. She uses cyclobenzaprine, duloxetine, gabapentin, meloxicam, and tramadol. 8. The patient will follow up in 6 months or of course sooner as needed. SKK [email or web address] Not available 11/21/2024 06:50:21 05/27/2025 05/27/2025 1. Healthy lifes tyle was [...] her lab work that was done with [facility]. He cholesterol is controlled at this time. [...] months or of course sooner as needed. [email or web address] Not available 05/27/2025 16:32:33 Plan of Treatment Reminders Order Date Submit Date Provider Last Modified By Organization Details Last Modified Time Details Appointments Establish ed Patient 20.EST 2025 03:40P M Dr. Katt Majano Not available Not available Not available Lab hemoglobi n, gastroint estinal, stool [email or web address] Only - [facility], [address] [place] [address], [address], 12/12/2024 16:33:38 fecal occult blood, immunoass ay, stool 2024 025 [facility] Only - [facility], [address] [place] [address], [address], 11/20/2024 16:42:04 Referral None recorded. Procedures None recorded. Surgeries None recorded. Imaging XR, foot, 3 or more view 2024 025 [facility] Central Scheduling, [address], [place], [address], 05/27/2025 18:13:59 XR, ankle, 3 or more view 2024 [facility] Scheduling, [address], [place], [address], 05/27/2025 18:14:09 XR, finger(s) , 2 or more view - left thumb 2024 [facility] Scheduling, [address], [place], [address], 05/29/2025 00:37:43 MAMMO, screening , digital, bilateral 2024 [facility] Radiology Scheduling, [address] [place], [address], 12/24/2024 08:03:11 Medication Orders atorvasta tin 20 mg tablet 2024 [facility], [address] [place] [address], [place], [address], 05/27/2025 16:17:08 tramadol 50 mg tablet 2024 [facility], [address] [place] [address], [place], [address], 11/20/2024 16:41:34 atorvasta tin 20 mg tablet 2024 [facility], [address] [place] [address], [place], [address], 11/20/2024 16:30:19 Patient TargetsNo targets recorded. Patient InstructionsNo instructions recorded. Reason for Referral None Reported. Results Created Date Observation Date Name Description Value Unit Range Abnormal Flag Note LastModifiedBy Organization Detail LastModifiedTime 11/21/1911/20/2024 fecal occul t blood , immun oassa y, stool hemoccult kit * Occul t kit kavon d out to patie nt. Provi arjun will recei ve 'Veri fy Resul ts' task in elect ronic recor d after colle cted kit is recei oseas in lab and resul madeline. Not Available [facility] - [facility] [address], [address], 11/20/2024 16:42:04 12/25/19 25 12/22/2024 MAMMO , scree shalom, digit al, bilat eral No observ ation record ed. [facility] - Radiology [address] [facility], [place], [address], 12/28/2024 19:29:15 01/03/20 25 01/19/2020 imagi ng/di agnos tic resul t No observ ation record ed. [email or web address] Not Available 0 01/02/2025 20:01:59 01/03/20 25 02/24/2019 imagi ng/di agnos tic resul t No observ ation record ed. [email or web address] Not Available 0 01/02/2025 20:02:01 01/03/20 25 02/24/2019 imagi ng/di agnos tic resul t No observ ation record ed. [email or web address] Not Available 0 01/02/2025 20:02:02 01/03/20 25 04/04/2020 imagi ng/di agnos tic resul t No observ ation record ed. [email or web address] Not Available 0 01/02/2025 20:02:04 05/18/20 25 05/17/2025 imagi ng/di agnos tic resul t No observ ation record ed. [facility] [address] [facility], [place], [address], 05/18/2025 09:40:14 05/27/20 25 05/27/2025 XR, foot, 3 or more view No observ ation record ed. [facility] (Radiology) [address], [place], [address], 06/01/2025 14:20:56 05/27/2005/27/2025 XR, ankle , 3 or more view No observ ation record ed. [facility] (Radiology) [address], [place], [address], 06/01/2025 14:20:56 05/27/2005/27/2025 XR, finge r(s), 2 or more view No observ ation record ed. [facility] [address], [place], [address], 06/01/2025 14:20:57 Result Notes Documentation Provider Name and Address Organization Details Recorded Time Xr, Foot, 3 Or More View : This document (1 of 1) was received from [employer] on 05/27/2025 through Direct Message along with the following message body content: You have received a 3 page fax at 05/27/2025 10:57:06 PM. * The Caller-ID for this fax is [facility]. If you have any questions regarding this message or your service contact Corporate Support: [place] Email: [email or web address] Phone: or Email: [email or web address] Phones: [phone] Thank you for using the [employer] service! Katt Majano MD [facility] [place] [address], [address], [facility] 06/01/2025 11:38:34 Xr, Ankle, 3 Or More View : This document (1 of 1) was received from [employer] on 05/27/2025 through Direct Message along with the following message body content: You have received a 3 page fax at 05/27/2025 10:57:05 PM. * The Caller-ID for this fax is [facility]. If you have any questions regarding this message or your service contact Corporate Support: [place] Email: [email or web address] Phone: or Email: [email or web address] Phones: [phone] Thank you for using the [employer] service! Katt Majano MD [address] [place] [address], [address], [facility] 06/01/2025 11:38:34 Xr, Finger(s), 2 Or More View : This document (1 of 1) was received from [email or web address] on 05/27/2025 through Direct Message along with the following message body content: You have received a 3 page fax at 05/27/2025 10:57:54 PM. * The Caller-ID for this fax is [facility]. If you have any questions regarding this message or your service contact Corporate Support: [place] Email: [email or web address] Phone: or Email: [email or web address] Phones: [phone] Thank you for using the [employer] service! Katt Majano MD [address] [place] [address], [address], [facility] 06/01/2025 11:38:34 Problems Name Problem SNOMED Code Status Onset Date Resolution Date Notes Provider Name and Address Organization Details Recorded Time Benign meningioma 864259622 Active Not Available [facility] 16:27:48 Essential hypertensi on 51911474 Active 2024 Katt Majano MD [address] [place] [address], [address] , [facility] 5 16:23:55 Hyperlipid emia 43657257 Active 2024 Katt Majano MD [address] [place] [address], [address] , [facility] 5 16:24:05 Fibromyalg ia 924382469 Active 2024 Katt Majano MD [address] [place], [place] [address], [address] , [facility] 16:24:14 Generalize d arthritis 303467076 Active 2024 Katt Majano MD [address] [place] [address], [address] , [facility] 16:25:07 Restless legs syndrome 76569237 Active 2024 Katt Majano MD [address] [place], [place] [address], [address] , [facility] 16:25:13 Neuromyeli tis optica 44505922 Active 2024 Katt Majano MD [address] [place], [place] [address], [address] , [facility] 16:25:42 Pain in right foot 6914765715230 07 Active 2024 Katt Majano MD [address] [place] [address] [place], [address] , [facility] 16:15:49 Pain in left thumb 3288175765766 100 Active 2024 Katt Majano MD [address] [place], [place] [address], [address] , [facility] 16:17:51 Notes:Some problems listed i n Documents: #[id number], #[id number] could not be added to this patient's [...] Name and Address Organization Details Recorded Time 8627091 honey bee venom medicatio n anaphylax is Not available Not available 11/13/2024 40154 7 RxNorm Not Available Health Note 17:04:54 0485945 cultivate d mushroom extract food,medi cation anaphylax is Not available Not available 05/27/2025 0[address]43 [address] [facility] 16:01:12 180648 Biaxin medicatio n anaphylax is Not available Not available 07/30/20232022 24379 9 RxNorm React ion: Synco pe; Anaph ylaxi s; Comme nt: Other Chaitanya kennedy ns: Healt h Note, ADPVe ndor 2022 2:23P M Honey bees; ; Not Available [facility] 22:37:30 792146 Substance with sulfonami de structure and antibacte rial mechanism of action (substanc e) medicatio n anaphylax is Not available Not available 07/30/20232018 95551 8003 SNOMED React ion: Throa t Swell ing; Tongu e Swell ing; Not Available [facility] 4 22:37:30 941293 Keflex medicatio n anaphylax is Not available Not available 07/30/2023201816 7 RxNorm React ion: Tongu e Swell ing; Throa t Swell ing; Not Available [facility] 22:37:30 Medications Name Sig Start Date Stop [...] time (dispense 2-michael for each location, e.g. home/[facility]/other) may repeat one time 2024 active Not Available Not Available Not Avai lable Vitals Date Recorded Body weight Body mass index (BMI) Body height Body temperature Respiratory rate Oxygen saturation Heart rate Systolic And Diastolic Provider Name and Address Organization Details Last Updated DateTime 5 90073.1 7 g 33.5 kg/m2 161.29 cm 97.2 [degF] 20 /min 98 % 83 /min 122/78 mm[Hg] [facility] 5 16:15:28 Date Recorded Body height Body mass index (BMI) Body weight Respiratory rate Oxygen saturation Heart rate Systolic And Diastolic Provider Name and Address Organization Details Last Updated DateTime 5 161.29 cm 31.1 kg/m2 38730.6 g 20 /min 98 % 69 /min 154/84 mm[Hg] [facility] 5 16:04:46 Social History Question Answer Notes [...] 11/13/2024 When Did You Quit Smoking? 16+yearssincel astcigarette [email or web address] Information not available 11/13/2024 What Was The Date Of Your Most Recent Tobacco Screening? 05/27/2025 [email or web address] Information not available 05/27/2025 What Is Your [...] Time Influenza, MDCK, trivalent, PF 5 completed [facility] 05/27/2025 16:37:31 Influenza, split virus, quadrivalent, preservative 9 completed Not Available [facility] 06/01/2025 10:40:55 Influenza, split virus, quadrivalent, preservative 9 completed Not Available [facility] 06/01/2025 10:40:55 Tdap 3 completed Not Available [facility] 06/01/2025 10:40:55 Past Encounters Encounter ID Performer Location Encounter Start Date Encounter Closed Date Diagnosis/Indication Diagnosis SNOMED-CT Code Diagnosis ICD10 Code Diagnosis IMO Codes Diagnosis Note [id number] Katt Majano MD [facility]) [facility] [place] [address] 11/20/2024 16:06:01 11/20/2024 16:48:52 Screening mammography 15863875 Z12.31 16620596 Screening for malignant neoplasm of colon 174269561 Z12.11 015266 Benign meningioma 886468 006 D32.9 stable, calcified benign meningioma on head CT 2022. no sx. Hyperlipidemia 29520781 E78.5 86740013 Essential hypertension 73728819 I10 61370 Fibromyalgia 741280512 M 79.7 63770 Neuromyelitis optica 250 90625 G36.0 97487 follows with neuroptho Restless l egs syndrome 39216277 G25.81 769914 Generalized arthritis 20 0386473 M19.90 60734302 Body mass index 30+ - obesity 747437962 Z68.33 245951 discussed diet, exercise, weight management Adult [facility] examination 479211794 Z00.00 443541 [id number] Katt Majano MD [facility]) [address] [place] [address] 05/27/2025 15:45:37 05/27/2025 16:32:02 Adult health examination 496030401 Z00.00 900757 Benign meningioma 391088 006 D32.9 stable, calcified benign meningioma on head CT 2022. no sx. Hyperlipidemia 19316348 E78.5 29080176 Essential hypertension 86825141 I10 79630 Fibromyalgia 288047263 M 79.7 61359 Neuromyelitis optica 250 56003 G36.0 23361 follows with neuroptho Restless l egs syndrome 92716719 G25.81 388576 Generalized arthritis 20 4389938 M19.90 16294818 Body mass index 30+ - obesity 888950981 Z68.33 849973 discussed diet, exercise, weight management Pain in right foot 51982 10402 14736 M79.671 499932 Pain in left thumb 21317 45193 153872 M79.645 61425227 Vaccination needed 98508 89505 53928 Z23 246605 Health Concerns Section Related Observation LastModified by Organization Detai ls LastModified Time None Recorded Concern Status LastModified by Organization Details LastModified Time None Recorded Advance Directives Directive N: Payers Insurance Date Sequence Insurance Name Policy Number Policy Echavarria Covered Member ID Echavarria Member ID Guarantor Name 11/18/2024 1 [employer] (MEDICARE REPLACEMENT/A DVANTAGE - PPO) [id number] Adeline Taylor [id number] Adeline Taylor 05/28/2025 1 [facility] (MEDICARE REPLACEMENT/A DVANTAGE - HMO) [id number] Adeline Taylor [id number] Adeline Taylor Notes Date Note Type Note Provider Name and Address Organization Details Recorded Time 5 text/html Adeline Lees a 58 year oldfemalepresenting for care. The patient is here today for a new patient visit to establish care. She was previously a patient of Dr. Cumminsg. She had some labs done through [facility] a couple of months ago. She brought in her lab results and would like to discuss them.She also notes that she is gaining weight despite watching her diet and exercising. -mammogram: 2020, will provide an order for this-PAP: s/p hysterectomy-colonoscopy : did a FIT test in 2020, will to do again PMH - HTN - HLD - fibromyalgia - arthritis - RLS - corneal implants - devick's disease s pecialists: neuropthomology Menopause:noDate of last pap smear:12/01/2019Date of last mammogram:07/02/2023 Katt Majano MD [address] [place] [address], [address], [facility] 11/25/2024 11:23:24 5 text/html The patient is here today for a routine six month visit. She had a fall around 05/17/25 and went to the emergency room in [place]. She injured her right ankle and foot, [...] they came back okay. -mammogram: 12/22/2024-PAP: s/p hysterectomy-colonoscopy : 11/20/2024-influenza vaccine: wants today Katt Majano MD [address] [place] [address], [phone], [place] [facility] 05/27/2025 17:01:28 OBGyn Episode No OBEpisode recorded.
--- OUTSIDE RECORDS SUMMARY | 2025-06-02 12:21 | XMS_ITS | Clinical Summary ---
Author Organization [facility] Building B Address [address] [place] [address] Care Team Providers Care Crusher Wet Ground Mica Name Role Phone Joao Turner MD Primary Care Provider [phone] Allergies Active Allergy Reactions Criticality Noted Date [...] on file Legal Sex Female 6:08 AM LOGISTICS/SHIPPER Gender Identity Not on file Sexual Orientation [...] file Insurance BL CHO[employer] PRF [place] [facility] [employer] [facility] [employer] ID[employer] Care Teams Crusher Wet Ground Mica Relationship Specialty Start Date End Date Joao Turner MD [address] [place] [address] PCP - General Family Medicine 09/21/21
== END 2025-06-02 11:43 | disposition home or self-care (01) ==
LOC: CHSED 11:12
PROVIDERS: Emergency Provider Family Medicine; PCP Family Medicine
DX: S93.401A Sprain of unspecified ligament of right ankle, initial encounter (principal); S09.90XA Unspecified injury of head, initial encounter; Z79.899 Other long term (current) drug therapy; Z79.1 Long term (current) use of non-steroidal anti-inflammatories (NSAID); W01.0XXA Fall on same level from slipping, tripping and stumbling without subsequent striking against object, initial encounter
CPT/HCPCS: 70450; 73610; 99284